=== PATIENT | male | born 1970 ===

== ENCOUNTER 2016-09-12 11:09 | Inpatient (IN) | payer MEDICAID, OTHER ==
[~2016-09-12] VITALS: Ht 170.2 cm; Wt 80.0 kg
[~2016-09-12 11:09] MED LIST: INSUINJ5 INJ; LISI-515 PO; METF500T PO; PERC10TA27 PO; [UNRECOGNIZED DRUG - REMARK] PO
[2016-09-12] MEDS ORDERED: SODIUM CHLORIDE 0.9% FLUSH 10 ML FLUSH IV FLUSH PRN (12:45)
[2016-09-12] MEDS ORDERED: ONDANSETRON HCL 4 MG/2 ML VIAL IVP PRN (12:45)
[2016-09-12] MEDS ORDERED: ACETAMINOPHEN 325 MG TAB PO PRN ×2 (12:45)
[2016-09-12] MEDS ORDERED: NALOXONE HCL 0.4 MG/ML AMP IV PRN (12:45)
[2016-09-12] MEDS: ENOXAPARIN SODIUM 40 MG/0.4 ML SYRINGE SQ SCH (14:15)
[2016-09-12] MEDS: MORPHINE SULFATE 4 MG/ML INJ IV PRN ×4 (14:16→20:25)
[2016-09-12] MEDS ORDERED: IOHEXOL 350 MG/ML 10 ML VIAL (for RAD DIAG) IV ONE (15:22)
[2016-09-12] MEDS ORDERED: NITROGLYCERIN 0.4 MG SL 25 TABS/BTL SL PRN (15:30)
[2016-09-12] MEDS ORDERED: DEXTROSE 50% IN WATER 50 ML VIAL(D50) IV PUSH PRN (15:30)
[2016-09-12] MEDS ORDERED: GLUCAGON 1 MG/ML VIAL OTHER PRN (15:30)
--- NOTE | 2016-09-12 15:31 | HHI.HP ---
[facility] Toni High MD Admission Diagnosis Diagnoses: (1) Chest pain Diagnosis: Principal (2) Elevated troponin Diagnosis: Principal Travel History International Travel<30 Days: No Contact w/Intl Traveler <30 Da: No Traveled to Known Affected Are: No History of Present Illness Mr. Kc is a 46 year old male. He is here with chest pain and a troponin elevation. No overt EKG changes are present to yet indicate immediate heart cath. His risk factors are DM2 and a family history of CAD and RI in his father. The pain started this morning. It is at his lower chest and epigastrium. He has had a thoracic surgery 6 weeks ago for a neuroendocrine cardinoma at his T9/T10 spine and posterior lung. A significant amount of his vertebral body had to be removed, so he had a spinal fusion at the same time. No residual tumor was left after the procedure and he needs no chemotherapy or radiation. This is said because an exacerbation of his internal surgical wounds could lead to inflammation and chest pain in a similar distribution. Due to risk factors and positive findings, however, an ACS evaluation is warranted with a preliminary working diagnosis of NSTEMI. No other complaints. No fevers, no nausea, no cough. Review of Systems Constitutional: DENIES: Fever, Chills Eyes: DENIES: Blurred vision, Diplopia Ears, nose, mouth, throat: DENIES: Hearing loss, Vertigo Respiratory: DENIES: Cough, Wheezing, Shortness of breath Cardiovascular: COMPLAINS OF: Chest pain, DENIES: Palpitations, Syncope Gastrointestinal: DENIES: Abdominal pain, Black stools, Bloody stools Musculoskeletal: COMPLAINS OF: Joint pain, Muscle aches, Stiffness Integumentary: DENIES: Abnormal pigmentation Hematologic/lymphatic: DENIES: Bruising Immunologic/allergic: DENIES: Eczema Neurologic: DENIES: Abnormal gait Psychiatric: COMPLAINS OF: Anxiety, Confusion Past Family Social History Past Medical History DM2 Neuroendocrine Carcinoma (treated surgically) HTN Past Surgical History Removal of Neuroendocrine Carcinoma 6 weeks ago T9/T10 spinal fusion Reported Medications Reported Meds & Active Scripts Active Reported [muscle spasms med] 1 Tab PO HS Percocet (Oxycodone-Acetaminophen) 10-325 mg Tab 1 Tab PO Q4H PRN Novolin 70-30 Relion Inj (Insulin NPH Isophane-Reg (Human) 70-30 Inj) 100 Unit/ Ml Inj 25 INJ BID Lisinopril 20 Mg Tab 20 Mg PO DAILY Allergies: Coded Allergies: No Known Allergies (Unverified , 09/12/16) Active Ordered Medications Administered Medications Medications (Trade) Dose Ordered Sig/Bridget Route PRN Reason Start Time Stop Time Status Last Admin Dose Admin Enoxaparin Sodium (Lovenox Inj) 40 mg Q24H SQ 09/12/16 14:00 09/12/16 14:15 Morphine Sulfate (Morphine Inj) 4 mg Q3H PRN IV Pain 6-10;if unable to take PO 09/12/16 12:45 09/12/16 14:24 Family History DM2, CAD Social History Past Hx of Smoking, no smoking in the past 6 weeks No alcohol No drug abuse Physical Exam Physical Exam GENERAL: This is a well-nourished, well-developed patient, in no apparent distress. SKIN: No rashes, ecchymoses or lesions. Cool and dry. HEAD: Atraumatic. Normocephalic. No temporal or scalp tenderness. EYES: Pupils equal round and reactive. Extraocular motions intact. No scleral icterus. No injection or drainage. ENT: Nose without bleeding, purulent drainage or septal hematoma. Throat without erythema, tonsillar hypertrophy or exudate. Uvula midline. Airway patent. NECK: Trachea midline. No JVD or lymphadenopathy. Supple, nontender, no meningeal signs. CARDIOVASCULAR: Regular rate and rhythm without murmurs, gallops, or rubs. RESPIRATORY: Clear to auscultation. Breath sounds equal bilaterally. No wheezes , rales, or rhonchi. GASTROINTESTINAL: Abdomen soft, non-tender, nondistended. No hepato-splenomegaly , or palpable masses. No guarding. MUSCULOSKELETAL: Extremities without clubbing, cyanosis, or edema. No joint tenderness, effusion, or edema noted. No calf tenderness. Negative Homans sign bilaterally. NEUROLOGICAL: Awake and alert. Cranial nerves II through XII intact. Motor and sensory grossly within normal limits. Five out of 5 muscle strength in all muscle groups. Normal speech. Laboratory Laboratory Tests Test 5/8/17 13:56 Total Creatine Kinase 98 Troponin I 0.08 Assessment and Plan Problem List: (1) Chest pain ICD Code: R07.9 Status: Acute (2) Chest pain at rest ICD Code: R07.9 Status: Acute (3) Elevated troponin ICD Code: R74.8 Status: Acute (4) DM2 (diabetes mellitus, type 2) ICD Code: E11.9 Status: Acute (5) HTN (hypertension) ICD Code: I10 Status: Acute Assessment and Plan Assessment and Plan 46 year old male admitted with chest pain and elevated troponin with a baseline of DM2 and a family history of RI. Chest Pain Angina D-dimer elevation Possible NSTEMI Troponin Elevation Follow cardiac enzymes Serial EKGs Cardiology consult Oxygen PRN Morphine Nitroglycerine PRN and Topical Paste Aspirin Daily FLP in AM Statin CT Angiogram of chest to rule out PE given elevated D-dimer Subacute Thoracic Spine surgery Performed via thorax approach Pain may be related to this surgery, of not cardiac in origin Increased risk for PE DM2 Insulin Sliding Scale Diabetic Diet Follow blood sugars HTN Follow BP Holding lisinopril Providing Metoprolol DVT Prophylaxis Lovenox Physician Certification 2 Midnight Certification Type: Admission for Inpatient Services Order for Inpatient Services The services are ordered in accordance with Medicare regulations or non- Medicare payer requirements, as applicable. In the case of services not specified as inpatient-only, they are appropriately provided as inpatient services in accordance with the 2-midnight benchmark. Estimated LOS (days): 2 days is the estimated time the patient will need to remain in the hospital, assuming treatment plan goals are met and no additional complications. Post-Hospital Plan: Home Irvin Noriega MD September 12, 2016 15:31
--- NOTE | 2016-09-12 15:43 | RADRPT ---
EXAM DATE/TIME: 09/12/2016 15:03 [facility] COMPARISON: No previous studies available for comparison. INDICATIONS : Lower chest pain today. IV CONTRAST: 71 cc Omnipaque 350 (iohexol) IV RADIATION DOSE: 22.99 CTDIvol (mGy) MEDICAL HISTORY : Diabetes mellitus type 2. Hypertension. SURGICAL HISTORY : Mass removed from T9/T10 ENCOUNTER: Initial ACUITY: 1 day PAIN SCALE: 6/10 LOCATION: Bilateral lower chest TECHNIQUE: Volumetric scanning of the chest was performed using a pulmonary embolism protocol MIP images were re constructed. Using automated exposure control and adjustment of the mA and/or kV according to patien t size, radiation dose was kept as low as reasonably achievable to obtain optimal diagnostic quality images. FINDINGS: Minimal bibasilar consolidative changes are noted, worse on the left than the right. There is a well-circumscribed 3 cm soft tissue mass in the AP window probably adenopathy. There is n o evidence for a central pulmonary emboli. Portion of liver and spleen identified are free of focal de fects. Evidence for a previous spinal surgery is noted. There are either postsurgical changes or bony destruction evident on the right at the operative site. No other bony abnormalities appreciated. CONCLUSION: 1. Evidence for previous spinal surgery thought to be malignancy by history. 2. Abnormal soft tissue mass in the AP window on the left. 3. There is no evidence for central pulmonary emboli. Shayan Richardson MD FACR on September 12, 2016 at 15:31 Board Certified Radiologist. This report was verified electronically.
[2016-09-12] MEDS: INSULIN ASPART SUPPLEMENTAL SCALE SQ SCH ×2 (16:00→20:31)
--- NOTE | 2016-09-12 16:12 | PD.CONS ---
HPI Service Cardiology Consult Requested By Reason for Consult CP Primary Care Physician Toni High MD History of Present Illness 46 y/o M with pmhx significant neuroendocrine carcinoma at his T9/T10 spine and posterior lung s/p resection and spinal fusion 6 weeks ago, cardiac risk factors that include DM and HTN that presents to the ER with complaints atypical chest pain, localized to the epigastric region, radiating to the right thoracic area next to the heal surgical wound. He was found to have mildly elevated troponin's, thus cardiology has been consulted. EKG with no acute ST changes. He denies fevers, no nausea, no cough, SOB, palpitations, PND, leg edema or syncope. Review of Systems Consitutional: DENIES: Fatigue, Fever, Chills, Weight gain, Weight loss Eyes: DENIES: Amaurosis Fugax, Change in vision HEENT: DENIES: Lightheadedness, Change in hearing Respiratory: DENIES: See HPI, Cough, Snoring, Shortness of breath, Wheezing, Sputum production Cardiovascular: COMPLAINS OF: See HPI, Chest pain, DENIES: Palpitations, Syncope, Tachycardia Gastrointestinal: DENIES: Nausea, Vomiting, Change in bowel habits, Reflux, Bloody stools, Melena Genitourinary: DENIES: Urinary incontinence, Difficulty voiding Integumentary: DENIES: Rash Neurologic: DENIES: Tingling or numbness, Memory problems, Poor Balance, Stroke symptoms Musculoskeletal: DENIES: Joint pain, Muscle pain, Limited range of motion, Back pain Psychiatric: DENIES: Anxiety, Depression, Sleep disturbances Hematologic: DENIES: Bruising tendencies, Bleeding tendencies Endocrine: DENIES: Weight gain, Weight loss, Thyroid disease Past Family Social History Allergies: Coded Allergies: No Known Allergies (Unverified , 09/12/16) Past Medical History DM2 Neuroendocrine Carcinoma (treated surgically) HTN Past Surgical History Removal of Neuroendocrine Carcinoma 6 weeks ago T9/T10 spinal fusion Reported Medications Reported Meds & Active Scripts Active Reported [muscle spasms med] 1 Tab PO HS Percocet (Oxycodone-Acetaminophen) 10-325 mg Tab 1 Tab PO Q4H PRN Novolin 70-30 Relion Inj (Insulin NPH Isophane-Reg (Human) 70-30 Inj) 100 Unit/ Ml Inj 25 INJ BID Lisinopril 20 Mg Tab 20 Mg PO DAILY Active Ordered Medications Current Medications Medications (Trade) Dose Ordered Sig/Bridget Route Start Time Stop Time Status Last Admin (NS Flush) 2 ml UNSCH PRN IV FLUSH 09/12/16 12:45 (NS Flush) 2 ml BID IV FLUSH 09/12/16 21:00 (Tylenol) 650 mg Q4H PRN PO 09/12/16 12:45 (Zofran Inj) 4 mg Q6H PRN IVP 09/12/16 12:45 (Lovenox Inj) 40 mg Q24H SQ 09/12/16 14:00 09/12/16 14:15 (Tylenol) 650 mg Q6H PRN PO 09/12/16 12:45 (Morphine Inj) 2 mg Q3H PRN IV 09/12/16 12:45 (Morphine Inj) 4 mg Q3H PRN IV 09/12/16 12:45 09/12/16 14:24 (Narcan Inj) 0.4 mg UNSCH PRN IV 09/12/16 12:45 (Nitrostat Sl) 0.4 mg Q5M PRN SL 09/12/16 15:30 (Lopressor) 25 mg Q12HR PO 09/12/16 21:00 (D50w (Vial) Inj) 25 ml UNSCH PRN IV PUSH 09/12/16 15:30 (Glucagon Inj) 1 mg UNSCH PRN OTHER 09/12/16 15:30 (Lipitor) 40 mg DAILY PO 09/13/16 09:00 (Aspirin) 325 mg DAILY PO 09/13/16 09:00 Family History CAD Physical Exam Physical Exam GENERAL: Well-nourished, well-developed patient. SKIN: Warm and dry. HEAD: Normocephalic. EYES: No scleral icterus. No injection or drainage. NECK: Supple, trachea midline. No JVD or lymphadenopathy. CARDIOVASCULAR: Regular rate and rhythm without murmurs, gallops, or rubs. RESPIRATORY: Breath sounds equal bilaterally. No accessory muscle use. GASTROINTESTINAL: Abdomen soft, non-tender, nondistended. EXTREMITIES: No cyanosis, or edema. NEUROLOGICAL: Awake, alert, and oriented x 3. Non-focal. Laboratory Laboratory Tests Test 09/12/16 13:56 Total Creatine Kinase 98 Troponin I 0.08 Assessment and Plan Problem List: (1) Chest pain Assessment and Plan: 46 y/o M wit cardiac risk factors DM and HTN admitted with chest pain and mild elevated troponin in the setting of recent neuroendocrine tumor resection and manipulation in the T9/10 distribution. He remains afebrile and hemodynamically stable. Chest CTA pending. Recommendations: 1. Cycle cardiac markers x3 2. Telemetry monitoring 3. 2-D Echocardiogram 4. Cont ASA 81mg PO daily 5. MPI 6. Aggressive medical management for CAD risk factors 7. Follow up CTA results 8. Start PPI If MPI unremarkable d/c home with PCP follow up. Thank you for the opportunity to participate in the care of this patient. (2) HTN (hypertension) (3) Elevated troponin (4) DM2 (diabetes mellitus, type 2) (5) Chest pain at rest Moy Ghotra MD September 12, 2016 16:12
[2016-09-12 16:25] VITALS: BP 137/83; PULSE 65; RESP 18; TEMP 98.3; O2SAT 96
[2016-09-12] MEDS: PANTOPRAZOLE SOD 40 MG DELAYED RELEASE TAB PO SCH (17:33)
[2016-09-12 19:21] LABS: HDL CHOLESTEROL 41.7 MG/DL (40.0-60.0)
[2016-09-12 20:03] VITALS: BP 135/85; PULSE 73; RESP 18; TEMP 98.3; O2SAT 95
[2016-09-12] MEDS: SODIUM CHLORIDE 0.9% FLUSH 10 ML FLUSH IV FLUSH SCH (20:26)
[2016-09-12] MEDS: METOPROLOL TARTRATE 25 MG TAB PO SCH (20:26)
[2016-09-12 23:43] VITALS: BP 162/89; PULSE 72; RESP 18; TEMP 98; O2SAT 95
[2016-09-13] VITALS (7 sets, daily range): BP systolic 146–181; BP diastolic 82–101; PULSE 70–77; RESP 14–18; TEMP 97.8–98.4; O2SAT 95–97
[2016-09-13] MEDS: MORPHINE SULFATE 4 MG/ML INJ IV PRN ×3 (05:16→20:22)
[2016-09-13 05:27] LABS: AUTOMATED NEUTROPHIL # 4.7 TH/MM3 (1.8-7.7); BASOPHIL # 0.1 TH/MM3 (0-0.2); BASOPHIL % 0.9 % (0.0-2.0); EOSINOPHIL # 0.4 TH/MM3 (0-0.4); EOSINOPHIL % 4.9 % (0.0-4.0); HEMATOCRIT 30.7 % (39.0-51.0); HEMO FLAGS DIFF FINAL; LYMPHOCYTE # 2.8 TH/MM3 (1.0-4.8); MEAN CELL VOLUME 84.2 FL (80.0-100.0); MEAN CORPUSCULAR HEMOGLOBIN 28.3 PG (27.0-34.0); MEAN CORPUSCULAR HGB CONC 33.6 % (32.0-36.0); MONO % 8.5 % (0.0-8.0); NEUT % 53.7 % (16.0-70.0); PLATELET COUNT 281 TH/MM3 (150-450); RED BLOOD COUNT 3.64 MIL/MM3 (4.50-5.90); RED CELL DISTRIBUTION WIDTH 13.5 % (11.6-17.2); WHITE BLOOD COUNT 8.8 TH/MM3 (4.0-11.0)
[2016-09-13] MEDS: INSULIN ASPART SUPPLEMENTAL SCALE SQ SCH ×4 (06:14→20:22)
--- NOTE | 2016-09-13 07:40 | HHI.PR ---
Subjective Remarks Follow up for chest pain. The patient reports no further episodes of chest pain overnight. He states yesterday the pain was more located in the epigastric area. Denies any nausea/vomiting or diarrhea/constipation. Denies any shortness of breath. The patient reports history of neuroendocrine carcinoma with chest mass 4.5cm and a larger mass at T9 that was surgically resected on 08/05/16 at [facility]. He has an appointment with Dr. Bautista his neurosurgeon tomorrow. The patient states he does still have thorax pain from the surgery. Discussed thoroughly with the patient the results of his CTA showing 3cm mass, possible adenopathy, will provide the patient with a disc of images to take to his neurosurgeon, the patient verbalized understanding. Objective Vitals Vital Signs Date Time Temp Pulse Resp B/P Pulse Ox O2 Delivery O2 Flow Rate FiO2 09/13/16 07:13 97.8 72 14 146/92 95 09/13/16 02:02 71 09/12/16 23:43 98.0 72 18 162/89 95 09/12/16 20:03 98.3 73 18 135/85 95 09/12/16 16:25 98.3 65 18 137/83 96 I/O 09/12/16 09/12/16 09/12/16 09/13/16 09/13/16 09/13/16 07:00 15:00 23:00 07:00 15:00 23:00 Intake Total 240 ml Balance 240 ml Intake Oral 240 ml # Voids 1 Result Diagram: 09/13/16 [address] Angiography 09/12/16 0000 Signed Impressions: Service Date/Time: Monday, September 12, 2016 15:03 - CONCLUSION: 1. Evidence for previous spinal surgery thought to be malignancy by history. 2. Abnormal soft tissue mass in the AP window on the left. 3. There is no evidence for central pulmonary emboli. Shayan Richardson MD FACR Objective Remarks GENERAL: Well-nourished, well-developed middle aged male patient in NAD. SKIN: Warm and dry. No rash. HEENT: Normocephalic. Atraumatic.Pupils equal and round. Mucous membranes pink and moist. NECK: Supple. Trachea midline. CARDIOVASCULAR: Regular rate and rhythm. S1, S2 noted. No murmur appreciated. RESPIRATORY: No accessory muscle use. Clear to auscultation. Breath sounds equal bilaterally. GASTROINTESTINAL: Abdomen soft, non-tender, nondistended. Normoactive bowel sounds x4. MUSCULOSKELETAL: No obvious deformities. Extremities without clubbing, cyanosis , or edema. Right posterolateral thorax with large surgical scar, well healing. NEUROLOGICAL: Awake and alert. No obvious cranial nerve deficits. Motor grossly within normal limits. Normal speech. PSYCHIATRIC: Appropriate mood and affect; insight and judgment normal. Medications and IVs Current Medications Medications (Trade) Dose Ordered Sig/Bridget Route Start Time Stop Time Status Last Admin (NS Flush) 2 ml UNSCH PRN IV FLUSH 09/12/16 12:45 (NS Flush) 2 ml BID IV FLUSH 09/12/16 21:00 09/12/16 20:26 (Tylenol) 650 mg Q4H PRN PO 09/12/16 12:45 (Zofran Inj) 4 mg Q6H PRN IVP 09/12/16 12:45 (Lovenox Inj) 40 mg Q24H SQ 09/12/16 14:00 09/12/16 14:15 (Tylenol) 650 mg Q6H PRN PO 09/12/16 12:45 (Morphine Inj) 2 mg Q3H PRN IV 09/12/16 12:45 09/12/16 17:35 (Morphine Inj) 4 mg Q3H PRN IV 09/12/16 12:45 09/13/16 05:16 (Narcan Inj) 0.4 mg UNSCH PRN IV 09/12/16 12:45 (Nitrostat Sl) 0.4 mg Q5M PRN SL 09/12/16 15:30 (Lopressor) 25 mg Q12HR PO 09/12/16 21:00 09/12/16 20:26 (D50w (Vial) Inj) 25 ml UNSCH PRN IV PUSH 09/12/16 15:30 (Glucagon Inj) 1 mg UNSCH PRN OTHER 09/12/16 15:30 (Lipitor) 40 mg DAILY PO 09/13/16 09:00 (Aspirin) 325 mg DAILY PO 09/13/16 09:00 (Protonix) 40 mg DAILY PO 09/12/16 16:45 09/12/16 17:33 A/P Problem List: (1) Chest pain ICD Code: R07.9 Status: Acute (2) Chest pain at rest ICD Code: R07.9 Status: Acute (3) Elevated troponin ICD Code: R74.8 Status: Acute (4) DM2 (diabetes mellitus, type 2) ICD Code: E11.9 Status: Acute (5) HTN (hypertension) ICD Code: I10 Status: Acute Assessment and Plan 46 year old male admitted with hx of recent neuroendocrine tumor resection , Diabetes mellitus, and family history of AL, presents with chest pain and elevated troponin. Chest Pain/Angina, D-dimer elevation, Possible NSTEMI, Elevated Troponin: -Troponins elevated at 0.09, 0.08, 0.08. EKG without acute ischemic changes -D-dimer elevated, CT-PA negative for PE, but does show abnormal soft tissue mass in AP window on the left, see below -Consulted cardiology, recommends Nuclear Stress Test and echocardiogram, ok to discharge if unremarkable -Continue Nitro prn, Morphine prn, O2 as needed -Continue aspirin, statin -Lipid panel with LDL 155, cholesterol 230, triglycerides 168 -pain possibly related to recent thoracic surgery if above negative Chest Mass with hx of Neuroendocrine Carcinoma: CT-PA showed abnormal 3cm soft tissue mass at the left AP window. Patient reports hx of recent neuroendocrine tumor resected from the chest and T9-T10 on 08/05/16. He also had recent outpatient PET scan. He has an appointment with his neurosurgeon Dr. Bautista tomorrow, will provide disc with images at discharge for patient to f/up as outpatient, the patient verbalized understanding. DM2: Monitor Accu-cheks, cover with SSI. Diabetic Diet. HTN: Chronic, continue patient's lisinopril. Added metoprolol with chest pain as above. Monitor BP. DVT Prophylaxis: Lovenox Written by Maci Navarro, acting as scribe for Dr. Cespedes on 09/13/16 at 07:45. Discharge Planning DC home in stable condition Nuclear stress test normal. Patient has an appointment at [facility] with his neurosurgeon tomorrow. Follow up as OP with PCP, consultants Meds per med reconciliations Diet: Reg as tolerated Activity ad vinicius as tolerated DC time > 30 min Maci Navarro PA-C September 13, 2016 07:39 Alisia Cespedes MD September 13, 2016 07:44
[2016-09-13] MEDS: SODIUM CHLORIDE 0.9% FLUSH 10 ML FLUSH IV FLUSH SCH ×2 (09:07→20:22)
[2016-09-13] MEDS: PANTOPRAZOLE SOD 40 MG DELAYED RELEASE TAB PO SCH (09:07)
[2016-09-13] MEDS: ATORVASTATIN 40 MG TAB PO SCH (09:07)
[2016-09-13] MEDS: LISINOPRIL 20 MG TAB PO SCH (09:07)
[2016-09-13] MEDS: METOPROLOL TARTRATE 25 MG TAB PO SCH ×2 (09:07→20:21)
[2016-09-13] MEDS: ASPIRIN 325 MG TAB PO SCH (09:08)
[2016-09-13] MEDS ORDERED: REGADENOSON INJ 0.4 MG/5 ML SYR ONE (10:36)
--- NOTE | 2016-09-13 12:25 | RADRPT ---
EXAM DATE/TIME: 09/13/2016 10:18 [facility] COMPARISON: No previous studies available for comparison. INDICATIONS : Mid chest pain for one day. Coronary atherosclerosis. DOSE: 25.8 mCi Tc99m Myoview at stress. 8.7 mCi Tc99m Myoview at rest. 0.4 mg Lexiscan STRESS SYMPTOMS: Dyspnea. EJECTION FRACTION: 55% MEDICAL HISTORY : Diabetes mellitus type 2. Hypertension. Neuroendocrine carcinoma. SURGICAL HISTORY : Fusion, thoracic. ENCOUNTER: Initial ACUITY: 1 day PAIN SCALE: 5/10 LOCATION: Midsternal chest TECHNIQUE: The patient underwent pharmacologic stress with infusion of prescribed dose. Continuous ECG tracing was monitored during stress. Gated SPECT imaging was performed after stress and conventional SPECT i maging was performed at rest. The examination was performed on a SPECT/CT scanner, both attenuation and non-corrected datasets were reviewed. FINDINGS: DISTRIBUTION: The maximum perfused segment at stress is in the septal lesser Brown wall. PERFUSION STUDY: The pattern of perfusion at stress is within normal limits. GATED STUDY: There is intact wall motion and thickening without hypokinetic or dyskinetic segments. CONCLUSION: No reversible perfusion defects. No focal wall motion abnormalities. RISK CATEGORY: 1-Low Risk. Romel Brown MD on September 13, 2016 at 12:21 Board Certified Radiologist. This report was verified electronically.
--- NOTE | 2016-09-13 15:49 | EKG ---
Date Performed: 09/12/2016 Time Performed: 14:03:30 PTAGE: 46 years EKG: Sinus rhythm MODERATE T-WAVE ABNORMALITY, CONSIDER LATERAL ISCHEMIA Compared to prior tracing no significant anglin ge ABNORMAL ECG NO PREVIOUS TRACING DOCTOR: Phil Camarena Interpretating Date/Time 09/13/2016 15:46:00
[2016-09-13] MEDS: ENOXAPARIN SODIUM 40 MG/0.4 ML SYRINGE SQ SCH (16:34)
--- NOTE | 2016-09-13 19:01 | EC ---
Study Study Date:09/13/2016 STUDY CONCLUSIONS SUMMARY - Left ventricle: The cavity size was normal. Wall thickness was increased in a pattern of mild LVH. Systolic function was normal. The estimated ejection fraction was in the range of 60% to 65%. Wall motion was normal; there were no regional wall motion abnormalities. - Mitral valve: Mild regurgitation. - Left atrium: The atrium was mildly dilated. - Tricuspid valve: Mild regurgitation. - Pulmonary arteries: PA peak pressure: 35mm Hg (S). If LV function is below 40, please consider prescribing an ACEI or ARB or document rationale for non-use. PROCEDURE DATA STUDY STATUS: Elective. Procedure: Transthoracic echocardiography. Image quality was good. Scanning was performed from the parasternal, apical, and subcostal acoustic windows. Study completion: The patient tolerated the procedure well. Transthoracic echocardiography. M-mode, complete 2D, complete spectral Doppler, and color Doppler. Patient status: Inpatient. CARDIAC ANATOMY LEFT VENTRICLE: The cavity size was normal. Wall thickness was increased in a pattern of mild LVH. Systolic function was normal. The estimated ejection fraction was in the range of 60% to 65%. Wall motion was normal; there were no regional wall motion abnormalities. AORTIC VALVE: Trileaflet; normal thickness leaflets. Doppler: Transvalvular velocity was within the normal range. There was no stenosis. No regurgitation. AORTA: Aortic root: The aortic root was normal in size. MITRAL VALVE: Structurally normal valve. Doppler: Transvalvular velocity was within the normal range. There was no evidence for stenosis. Mild regurgitation. LEFT ATRIUM: The atrium was mildly dilated. RIGHT VENTRICLE: The cavity size was normal. Wall thickness was normal. PULMONIC VALVE: Doppler: Transvalvular velocity was within the normal range. There was no evidence for stenosis. No regurgitation. TRICUSPID VALVE: Structurally normal valve. Doppler: Transvalvular velocity was within the normal range. Mild regurgitation. PULMONARY ARTERY: The main pulmonary artery was normal-sized. Systolic pressure was within the normal range. RIGHT ATRIUM: The atrium was normal in size. PERICARDIUM: There was no pericardial effusion. SYSTEMIC VEINS: Inferior vena cava: The vessel was normal in size. BASIC MEASUREMENTS ADULT NORMAL Left ventricle LV internal dimension, ED, chordal level, 44.8 mm 43-52 PLAX LV internal dimension, ES, chordal level, 31.4 mm 23-38 PLAX Fractional shortening, chordal level, PLAX 30 % >29 LV posterior wall thickness, ED 16 mm IVS/LVPW ratio, ED 0.66 <1.3 Ventricular septum Septal thickness, ED 10.6 mm Aortic valve Leaflet separation 21 mm 15-26 Right ventricle RV internal dimension, ED, PLAX 29.6 mm 19-38 BASIC MEASUREMENTS ADULT NORMAL Aortic valve Leaflet separation 21 mm 15-26 Aorta Root diameter, ED 34 mm 20-37 Left atrium Anterior-posterior dimension, ES *42 mm 19-40 LA/aortic root ratio 1.24 DOPPLER MEASUREMENTS ADULT NORMAL Main pulmonary artery Pressure, S *35 mm Hg =30 Mitral valve Peak E-wave velocity 67.1 cm/s Peak A-wave velocity 75.5 cm/s Peak E/A ratio 0.9 Tricuspid valve Regurgitant peak velocity 243 cm/s Peak RV-RA gradient, S 24 mm Hg Maximal regurgitant velocity 243 cm/s Systemic veins Estimated CVP 10 mm Hg Right ventricle RV pressure, S *35 mm Hg <30 LEGEND: Mean values are shown as u=mean value. Asterisk (*) brewster values outside specified normal range. Prepared and signed by Gracia Deng [id number]
[2016-09-14 00:06] VITALS: BP 161/93; PULSE 74; RESP 18; TEMP 96.5; O2SAT 93
[2016-09-14] MEDS: MORPHINE SULFATE 4 MG/ML INJ IV PRN ×2 (03:26→06:24)
[2016-09-14 04:26] VITALS: BP 136/90; PULSE 76; RESP 20; TEMP 96.4; O2SAT 93
[2016-09-14] MEDS: INSULIN ASPART SUPPLEMENTAL SCALE SQ SCH (06:20)
[2016-09-14 07:13] VITALS: BP 168/96; PULSE 75; RESP 16; TEMP 98.6; O2SAT 95
--- NOTE | 2016-09-14 07:18 | HHI.PR ---
Subjective Remarks Feels much better. Says he did not have any chest pain overnight. No cough, fevers or chills. Has some pain at the surgical scar. Surgical scar is healing well. No n/v/d/c. Eating well. Has an appointment today with his neurosurgeon in [place]. Plan to dCD, patient will go for appointment. Objective Vitals Vital Signs Date Time Temp Pulse Resp B/P Pulse Ox O2 Delivery O2 Flow Rate FiO2 09/14/16 07:13 98.6 75 16 168/96 95 09/14/16 04:26 96.4 76 20 136/90 93 09/14/16 00:06 96.5 74 18 161/93 93 09/13/16 23:45 70 09/13/16 19:52 98.4 77 18 181/101 97 09/13/16 15:45 98.3 76 16 148/82 95 09/13/16 11:37 98.1 70 18 156/98 95 09/13/16 08:00 70 Result Diagram: 09/13/16 0504 Imaging Last Impressions Myocardial Perfusion Scan Nuc Med 09/13/16 0000 Signed Impressions: Service Date/Time: Tuesday, September 13, 2016 10:18 - CONCLUSION: No reversible perfusion defects. No focal wall motion abnormalities. RISK CATEGORY: 1- Low Risk. Romel Brown MD CT Angiography 09/12/16 0000 Signed Impressions: Service Date/Time: Monday, September 12, 2016 15:03 - CONCLUSION: 1. Evidence for previous spinal surgery thought to be malignancy by history. 2. Abnormal soft tissue mass in the AP window on the left. 3. There is no evidence for central pulmonary emboli. Shayan Richardson MD FACR Objective Remarks GENERAL: Well-nourished, well-developed middle aged male patient in [facility]. SKIN: Warm and dry. No rash. HEENT: Normocephalic. Atraumatic.Pupils equal and round. Mucous membranes pink and moist. NECK: Supple. Trachea midline. CARDIOVASCULAR: Regular rate and rhythm. S1, S2 noted. No murmur appreciated. RESPIRATORY: No accessory muscle use. Clear to auscultation. Breath sounds equal bilaterally. GASTROINTESTINAL: Abdomen soft, non-tender, nondistended. Normoactive bowel sounds x4. MUSCULOSKELETAL: No obvious deformities. Extremities without clubbing, cyanosis , or edema. Right posterolateral thorax with large surgical scar, well healing. NEUROLOGICAL: Awake and alert. No obvious cranial nerve deficits. Motor grossly within normal limits. Normal speech. PSYCHIATRIC: Appropriate mood and affect; insight and judgment normal. A/P Problem List: (1) Chest pain ICD Code: R07.9 Status: Acute (2) Chest pain at rest ICD Code: R07.9 Status: Acute (3) Elevated troponin ICD Code: R74.8 Status: Acute (4) DM2 (diabetes mellitus, type 2) ICD Code: E11.9 Status: Acute (5) HTN (hypertension) ICD Code: I10 Status: Acute Assessment and Plan 46 year old male admitted with hx of recent neuroendocrine tumor resection , Diabetes mellitus, and family history of HI, presents with chest pain and elevated troponin. Chest Pain/Angina, D-dimer elevation, Possible NSTEMI, Elevated Troponin: -Troponins elevated at 0.09, 0.08, 0.08. EKG without acute ischemic changes. -D-dimer elevated, CT-PA negative for PE, but does show abnormal soft tissue mass in AP window on the left, see below -Consulted cardiology, recommends Nuclear Stress Test negative and echocardiogram with normal EF -Continue Nitro prn, Morphine prn, O2 as needed -Continue aspirin, statin -Lipid panel with LDL 155, cholesterol 230, triglycerides 168 -pain possibly related to recent thoracic surgery Chest Mass with hx of Neuroendocrine Carcinoma: CT-PA showed abnormal 3cm soft tissue mass at the left AP window. Patient reports hx of recent neuroendocrine tumor resected from the chest and T9-T10 on 08/05/16. He also had recent outpatient PET scan. He has an appointment with his neurosurgeon Dr. Bautista tomorrow, will provide disc with images at discharge for patient to f/up as outpatient, the patient verbalized understanding. DM2: Monitor Accu-cheks, cover with SSI. Diabetic Diet. HTN: Chronic, continue patient's lisinopril. Added metoprolol with chest pain as above. Monitor BP. DVT Prophylaxis: Lovenox Discharge Planning DC home in stable condition Nuclear stress test normal. Patient has an appointment at [facility] with his neurosurgeon today at noon. Follow up as OP with PCP, consultants Meds per med reconciliations Diet: Healthy heart diet + diabetic diet Activity ad vinicius as tolerated Discharge Planning Alisia Cespedes MD September 14, 2016 07:18 Alisia Cespedes MD September 14, 2016 07:18
--- NOTE | 2016-09-14 07:23 | HHI.DCPOC ---
Discharge Care Plan Goals to Promote Your Health * To prevent worsening of your condition and complications * To maintain your health at the optimal level Directions to Meet Your Goals Take your medications as prescribed Follow your dietary instruction Follow activity as directed Keep your appointments as scheduled Take your immunizations and boosters as scheduled If your symptoms worsen call your PCP, if no PCP go to Urgent Care Center or Emergency Room Smoking is Dangerous to Your Health. Avoid second hand smoke Call the 24-hour hour crisis hotline for domestic abuse at Alisia Cespedes MD September 14, 2016 07:22
[2016-09-14] MEDS: PANTOPRAZOLE SOD 40 MG DELAYED RELEASE TAB PO SCH (08:16)
[2016-09-14] MEDS: ATORVASTATIN 40 MG TAB PO SCH (08:16)
[2016-09-14] MEDS: LISINOPRIL 20 MG TAB PO SCH (08:17)
[2016-09-14] MEDS: ASPIRIN 325 MG TAB PO SCH (08:17)
[2016-09-14] MEDS: SODIUM CHLORIDE 0.9% FLUSH 10 ML FLUSH IV FLUSH SCH (08:19)
[2016-09-14] MEDS: METOPROLOL TARTRATE 25 MG TAB PO SCH (08:20)
== END 2016-09-14 11:06 | disposition home or self-care (01) | DRG 313 ==
LOC: NEDDLT 13:23 → OBSVTOIN 13:33 → NEPFCDU 13:33
PROVIDERS: ADMIT Hospitalist; ATTEND Hospitalist
DX: R07.89 Other chest pain (principal); I10 Essential (primary) hypertension; R22.2 Localized swelling, mass and lump, trunk; R74.8 Abnormal levels of other serum enzymes; E11.9 Type 2 diabetes mellitus without complications; Z79.4 Long term (current) use of insulin; Z98.1 Arthrodesis status; Z82.49 Family history of ischemic heart disease and other diseases of the circulatory system; Z87.891 Personal history of nicotine dependence; Z85.89 Personal history of malignant neoplasm of other organs and systems; Z98.890 Other specified postprocedural states
CPT/HCPCS: 71010; 71275; 78452; 80053; 80061; 82550; 82552; 82948; 83690; 84484; 85025; 85379; 85610; 85730; 93005; 93017; 93306; 99281; A9502; J1650; J1815; J2270; J2785; Q9967